=== PATIENT | male | born 1965 | race Caucasian/White ===

== ENCOUNTER 2021-01-17 20:40 | Emergency (ER) | payer MEDICAID ==
[~2021-01-17] VITALS: Ht 165.1 cm; Wt 77.0 kg
[2021-01-18 03:19] LABS: BASOPHILS % 0.6 % (0.0-2.0); EOSINOPHILS % 0.9 % (0.0-5.0); HEMOGLOBIN. 15.5 g/dL (14.0-18.0); LYMPHOCYTES % 18.6 % (20.0-50.0); MEAN PLATELET VOLUME 7.8 fl (7.4-10.4); MONOCYTES % 9.3 % (2.0-8.0); NEUTROPHILS % 70.6 % (40.0-76.0); PLATELET 291 x1000/uL (130-400); RED BLOOD CELL COUNT 5.17 mill/uL (4.7-6.1); RED CELL DISTRIBUTION WIDTH 13.6 % (11.6-14.6)
[2021-01-18 03:25] LABS: CHLORIDE 107 mEq/L (98-107)
[2021-01-18 03:30] LABS: ETHANOL BLOOD < 10 mg/dL
[2021-01-18 04:25] VITALS: BP 147/88
== END 2021-01-18 04:22 | disposition home or self-care (01) ==
LOC: ER 20:58
DX: R11.2 Nausea with vomiting, unspecified (principal); R19.7 Diarrhea, unspecified; I49.9 Cardiac arrhythmia, unspecified
CPT/HCPCS: 36415; 80053; 80320; 83880; 84484; 85025; 93005; 99284; G0480

== ENCOUNTER 2021-03-20 17:22 | Emergency (ER) | payer MEDICAID ==
[~2021-03-20] VITALS: Ht 165.1 cm; Wt 73.0 kg
[2021-03-20] MEDS ORDERED: VISCOUS LIDOCAINE 2% 15 ML UDC PO NR (19:30)
[2021-03-20] MEDS ORDERED: MAGNESIUM/ALUMINUM HYDROXIDE/SIMETHICONE 30ML UDC PO NR (19:30)
[2021-03-20 19:46] LABS: BASOPHILS % 0.3 % (0.0-2.0); EOSINOPHILS % 0.5 % (0.0-5.0); HEMATOCRIT. 42.4 % (42.0-52.0); HEMOGLOBIN. 14.7 g/dL (14.0-18.0); LYMPHOCYTES % 9.5 % (20.0-50.0); MEAN CORPUSCULAR HEMOGLOBIN 30.3 pg (28.0-32.0); MEAN CORPUSCULAR VOLUME 87.4 fL (80.0-94.0); MEAN PLATELET VOLUME 7.9 fl (7.4-10.4); MONOCYTES % 5.1 % (2.0-8.0); NEUTROPHILS % 84.6 % (40.0-76.0); PLATELET 229 x1000/uL (130-400); RED BLOOD CELL COUNT 4.85 mill/uL (4.7-6.1)
[2021-03-20 19:52] LABS: CHLORIDE 107 mEq/L (98-107)
[2021-03-20] MEDS ORDERED: IOHEXOL-300 100 ML BOTTLE ONE (22:39)
[2021-03-20] MEDS ORDERED: METOCLOPRAMIDE HCL 5MG TABLET PO ONE (23:00)
[2021-03-20 23:50] VITALS: BP 141/86
== END 2021-03-20 23:50 | disposition home or self-care (01) ==
LOC: ER 17:22
DX: K29.00 Acute gastritis without bleeding (principal); R11.2 Nausea with vomiting, unspecified
CPT/HCPCS: 36415; 74177; 80053; 83690; 85025; 85610; 93005; 99285; J8597; Q9967